=== PATIENT | female | born 1960 | race Caucasian/White ===

== ENCOUNTER → 2018-05-19 07:55 | Outpatient (CLI) | payer OTHER, SELFPAY ==
[2018-05-19 10:05] LABS: Free T4, Direct Thyroxine 1.42 ng/dL (0.78-2.19)
== END ==
PROVIDERS: Internal Medicine; Visit Provider Registered Nurse
DX: E03.9 Hypothyroidism, unspecified (principal)
CPT/HCPCS: 36415; 84439; 84443

== ENCOUNTER → 2018-09-28 11:42 | Outpatient (CLI) | payer OTHER, SELFPAY ==
[2018-09-28 12:34] LABS: Hematocrit 39.5 % (36-46); Hemoglobin 13.2 g/dL (12.0-16.0); Mean Corpuscular HGB Conc 33.4 % (30-36); Mean Corpuscular Hemoglobin 29.1 PG (26-34); Mean Corpuscular Volume 87.2 fL (80-100); Platelet Count 249 X10^3/uL (150-400); Red Blood Cell Count 4.52 X10^6/uL (4.0-5.2); Red Cell Distribution Width 12.9 % (11.6-14.8); White Blood Cell Count 5.8 X10^3/uL (4.5-11.0)
[2018-09-28 14:14] LABS: Vitamin D 25 Hydroxy (D3) 27.2 ng/mL (30.0-100.0)
[2018-09-28 16:26] LABS: Free T3, Triiodothyronine Free 3.27 pg/mL (2.77-5.27); Free T4, Direct Thyroxine 1.28 ng/dL (0.78-2.19)
[2018-09-28 16:39] LABS: Thyroid Stimulating Hormone 0.03 uIU/mL (0.47-4.68)
== END ==
PROVIDERS: Family Provider Family Medicine; PCP Student in an Organized Health Care Education/Training Program; Visit Provider Student in an Organized Health Care Education/Training Program
DX: E03.9 Hypothyroidism, unspecified (principal); E55.9 Vitamin D deficiency, unspecified
CPT/HCPCS: 36415; 82306; 84439; 84443; 84481; 85027

== ENCOUNTER → 2018-10-31 10:59 | Outpatient (CLI) | payer OTHER, SELFPAY ==
--- NOTE | 2018-10-31 11:01 | DI.US.S_ITS ---
PROCEDURE: US THYROID INDICATIONS: F/u previous thyroid nodules from September 2017 TECHNIQUE: Real-time scanning was performed of the thyroid gland, with image documentation. COMPARISON: [facility], [place], THYROID, 09/29/2017, 13:25. FINDINGS: Right: Thyroid lobe measures 4.5 x 1.6 x 1.4 cm, and is diffusely heterogeneous in echotexture. Left: Thyroid lobe measures 4.7 x 1.6 x 1.3 cm, and is diffusely heterogeneous in echotexture. Isthmus: 5.0 mm thick. Nodule number: 1 Location: Left inferior Size: Unchanged at 0.8 x 0.7 x 0.7 cm. Composition: Solid Echogenicity: Heterogeneous Shape: wider than tall. Margins: Lobulated Echogenic foci: None Total points: 4 ACR TI-RADS category: Moderately suspicious Nodule number: 2 Location: Left inferior Size: Unchanged at 0.8 x 0.7 x 0.8 cm. Composition: Solid Echogenicity: Hypoechoic Shape: wider than tall. Margins: Smooth Echogenic foci: None Total points: 4 ACR TI-RADS category: Moderately suspicious IMPRESSION: 1. Diffusely heterogeneous and multinodular thyroid redemonstrated. 2. Stable appearance of bilateral thyroid nodules. Recommend followup as below. ACR TI-RADS definitions and recommendations: TI-RADS 1 (benign): 0 points. FNA not needed. TI-RADS 2 (not suspicious): 2 points. FNA not needed. TI-RADS 3 (mildly suspicious): 3 points. * FNA if 2.5 cm or larger, follow up if 1.5 cm or larger (at 1, 3, and 5 years). TI-RADS 4 (moderately suspicious): 4-6 points. * FNA if 1.5 cm or larger, follow up if 1 cm or larger (at 1, 2, 3, and 5 years). TI-RADS 5 (highly suspicious): 7 points or more. * FNA if 1 cm or larger, follow up if 0.5 cm or larger (every year for 5 years). Dictated by: Tan SANDOVAL Interpreted: Alia Romano MD on 10/31/2018 at 12:50 Approved by: Alia Romano M.D. on 10/31/2018 at 15:15
== END ==
PROVIDERS: PCP Student in an Organized Health Care Education/Training Program; Visit Provider Student in an Organized Health Care Education/Training Program
DX: E03.9 Hypothyroidism, unspecified (principal); E04.2 Nontoxic multinodular goiter
CPT/HCPCS: 76536

== ENCOUNTER → 2019-03-01 12:12 | Outpatient (CLI) | payer OTHER, SELFPAY ==
--- NOTE | 2019-03-01 12:13 | DI.MG.S_ITS ---
BILATERAL DIGITAL SCREENING MAMMOGRAM 3D/2D WITH CAD: 03/01/2019 CLINICAL: Routine screening. Baseline exam. No prior exams were available for comparison. There are scattered fibroglandular elements in both breasts. Current study was also evaluated with a Computer Aided Detection (CAD) system. No significant masses, calcifications, or other findings are seen in either breast. IMPRESSION: NEGATIVE There is no mammographic evidence of malignancy. A 1 year screening mammogram is recommended. This exam was interpreted at Station ID: [id number]. NOTE: For mammograms, a report in lay terms will be sent to the patient. Approximately 15% of breast malignancies will not be visualized mammographically. In the management of a palpable breast mass, a negative mammogram must not discourage biopsy of a clinically suspicious lesion. Electronically Signed By: Salas mustafa/zachary:03/01/2019 12:48:47 letter sent: Normal Exam ACR BI-RADS Category 1: Negative [id number]
== END ==
PROVIDERS: PCP Student in an Organized Health Care Education/Training Program; Visit Provider Student in an Organized Health Care Education/Training Program
DX: Z12.31 Encounter for screening mammogram for malignant neoplasm of breast (principal)
CPT/HCPCS: 77063; 77067

== ENCOUNTER → 2019-04-02 13:58 | Outpatient (CLI) | payer OTHER, SELFPAY ==
[2019-04-04 16:55] LABS: Fecal Immunochemical Test NOT DETECTED (NOT DETECTED)
== END ==
PROVIDERS: PCP Student in an Organized Health Care Education/Training Program; Visit Provider Student in an Organized Health Care Education/Training Program
DX: Z12.11 Encounter for screening for malignant neoplasm of colon (principal)
CPT/HCPCS: 82274

== ENCOUNTER → 2019-09-17 14:26 | Outpatient (CLI) | payer OTHER, SELFPAY ==
[2019-09-17 15:53] LABS: Free T3, Triiodothyronine Free 2.38 pg/mL (2.77-5.27); Free T4, Direct Thyroxine 1.23 ng/dL (0.78-2.19)
[2019-09-17 16:06] LABS: Thyroid Stimulating Hormone 3.84 uIU/mL (0.47-4.68)
== END ==
PROVIDERS: PCP Student in an Organized Health Care Education/Training Program; Referring Provider Student in an Organized Health Care Education/Training Program; Visit Provider Student in an Organized Health Care Education/Training Program
DX: E03.9 Hypothyroidism, unspecified (principal)
CPT/HCPCS: 36415; 84439; 84443; 84481

== ENCOUNTER → 2020-11-18 12:08 | Outpatient (CLI) | payer OTHER, SELFPAY ==
--- NOTE | 2020-11-18 12:11 | DI.US.S_ITS ---
PROCEDURE: US THYROID INDICATIONS: 2yr routine f/u of bilateral thyroid nodules TECHNIQUE: Real-time scanning was performed of the thyroid gland, with image documentation. COMPARISON: [facility], [place], US THYROID, 10/31/2018, 11:35. FINDINGS: Right: Thyroid lobe measures 3.9 x 2.1 x 1.3 cm, and is diffusely heterogeneous in echotexture. Left: Thyroid lobe measures 3.4 x 1.4 x 1.2 cm, and is diffusely heterogeneous in echotexture. Isthmus: 3.0 mm thick. Nodule number: 1 Location: Left inferior Size: Essentially unchanged 1.0 cm Composition: Solid Echogenicity: Hypoechoic Shape: wider than tall. Margins: Smooth Echogenic foci: None Total points: 4 ACR TI-RADS category: Moderately suspicious IMPRESSION: Diffusely heterogeneous thyroid and no significant change in left thyroid nodule. Recommend continued followup ultrasound as detailed below. ACR TI-RADS definitions and recommendations: TI-RADS 1 (benign): 0 points. FNA not needed. TI-RADS 2 (not suspicious): 2 points. FNA not needed. TI-RADS 3 (mildly suspicious): 3 points. * FNA if 2.5 cm or larger, follow up if 1.5 cm or larger (at 1, 3, and 5 years). TI-RADS 4 (moderately suspicious): 4-6 points. * FNA if 1.5 cm or larger, follow up if 1 cm or larger (at 1, 2, 3, and 5 years). TI-RADS 5 (highly suspicious): 7 points or more. * FNA if 1 cm or larger, follow up if 0.5 cm or larger (every year for 5 years). Dictated by: Tan Tesfaye [facility] Interpreted: Harsh Hutchins MD on 11/18/2020 at 15:15 Transcribed by: PONCHO on 11/18/2020 at 15:16 Approved by: Harsh Hutchins M.D. on 11/18/2020 at 15:53
== END ==
PROVIDERS: PCP Student in an Organized Health Care Education/Training Program; Referring Provider Student in an Organized Health Care Education/Training Program; Visit Provider Student in an Organized Health Care Education/Training Program
DX: E04.1 Nontoxic single thyroid nodule (principal)
CPT/HCPCS: 76536

== ENCOUNTER → 2021-12-29 15:27 | Outpatient (CLI) | payer OTHER, SELFPAY ==
[2021-12-29 17:52] LABS: TSH w/ Reflex to FT4 < 0.02 uIU/mL (0.47-4.68)
[2021-12-29 18:24] LABS: Free T4, Direct Thyroxine 1.79 ng/dL (0.78-2.19)
== END ==
PROVIDERS: PCP Student in an Organized Health Care Education/Training Program; Referring Provider Student in an Organized Health Care Education/Training Program; Visit Provider Student in an Organized Health Care Education/Training Program
DX: E03.9 Hypothyroidism, unspecified (principal)
CPT/HCPCS: 36415; 84439; 84443

== ENCOUNTER → 2022-02-23 13:10 | Outpatient (CLI) | payer OTHER, SELFPAY ==
[2022-02-23 14:56] LABS: Free T4, Direct Thyroxine 1.75 ng/dL (0.78-2.19)
== END ==
PROVIDERS: PCP Student in an Organized Health Care Education/Training Program; Referring Provider Student in an Organized Health Care Education/Training Program; Visit Provider Student in an Organized Health Care Education/Training Program
DX: E03.9 Hypothyroidism, unspecified (principal)
CPT/HCPCS: 36415; 84439; 84443

== ENCOUNTER 2022-03-04 11:25 | Emergency (ER) | payer OTHER, SELFPAY ==
[2022-03-04] VITALS (18 sets, daily range): BP systolic 132–173; BP diastolic 63–83; PULSE 55–84; RESP 15–20; TEMP 36.2; O2SAT 94–99; BMI 28.8
--- NOTE | 2022-03-04 11:33 | DI.RAD.S_ITS ---
PROCEDURE: XR CHEST 1V INDICATIONS: chest pain TECHNIQUE: One view of the chest was acquired. COMPARISON: None. FINDINGS: Surgical changes and devices: None. Lungs and pleura: Lungs are clear. No pleural effusions or pneumothorax. Mediastinum: Mediastinal contours appear normal. Heart size is normal. Bones and chest wall: No suspicious bony lesions. Overlying soft tissues appear unremarkable. IMPRESSION: No acute cardiopulmonary findings Approved by: Rip Pérez M.D. on 03/04/2022 at 11:53
[2022-03-04 12:01] LABS: Add Manual Diff / Slide Review NO; Basophils Absolute Auto 0 /uL (0-100); Basophils Percent Auto 0.8 % (0-2); Eosinophils Absolute Auto 0 /uL (0-450); Eosinophils Percent Auto 0.7 % (2-4); Hematocrit 36.2 % (36-46); Hemoglobin 12.3 g/dL (12.0-16.0); Lymphocytes Absolute Auto 1000 /uL (1100-4500); Lymphocytes Percent Auto 19.7 % (25-40); Mean Corpuscular HGB Conc 33.9 % (30-36); Mean Corpuscular Hemoglobin 29.2 PG (26-34); Mean Corpuscular Volume 86.1 fL (80-100); Monocytes Absolute Auto 400 /uL (0-900); Monocytes Percent Auto 7.1 % (3-14); Neutrophils Absolute Auto 3600 /uL (1500-7000); Neutrophils Percent Auto 71.7 % (50-75); Platelet Count 294 X10^3/uL (150-400)
[2022-03-04 12:14] LABS: INR 1.1 (0.9-1.3); Prothrombin Time 12.8 SECONDS (10.1-12.7)
[2022-03-04 12:20] LABS: Alanine Aminotransferase 353 IU/L (<35); Albumin 4.3 g/dL (3.5-5.0); Albumin Globulin Ratio 1.3 (1.0-2.8); Alkaline Phosphatase 479 U/L (38-126); Aspartate Aminotransferase 117 IU/L (14-36); BUN Creatinine Ratio 12.5 (6-22); Bilirubin Total 1.2 mg/dL (0.2-1.3); Blood Urea Nitrogen 9 mg/dL (7-17); Calcium 9.3 mg/dL (8.4-10.2); Carbon Dioxide 23 mmol/L (22-32); Chloride 102 mmol/L (98-107); Creatine Kinase 21 U/L (30-135); Estimated Glomerular Filt Rate > 60 mL/min (>60); Globulin 3.4 g/dL (1.7-4.1); Glucose 113 mg/dL (80-110); HEMOLYSIS < 15 (0-50); Lipase 51 U/L (23-300); Magnesium 2.3 mg/dL (1.6-2.3); Potassium 3.7 mmol/L (3.4-5.1); Sodium 138 mmol/L (137-145); Total Protein 7.7 g/dL (6.3-8.2)
[2022-03-04 12:26] LABS: PTT Partial Thromboplastin Tim 35 SECONDS (26-36)
[2022-03-04 12:30] LABS: Troponin I < 0.012 ng/mL (0.01-0.034)
[2022-03-04 12:44] LABS: RBC Urine 1-5/HPF (0-5/HPF); Squamous Epithelial Cell Urine 1-5 /HPF (0-5/HPF); WBC Urine 0-1/HPF (0-5/HPF)
[2022-03-04 12:45] LABS: Bacteria Urine None Seen; Culture Indicated Urine Cult Not Indicated
[2022-03-04 13:09] LABS: Thyroid Stimulating Hormone 1.19 uIU/mL (0.47-4.68)
--- NOTE | 2022-03-04 15:12 | ED_ITS ---
HPI - Chest Pain <Linda Black DO - Last Filed: 03/10/22 07:01> General Chief Complaint: Chest Pain Stated Complaint: Vomiting, fever, chills Time Seen by Provider: 03/04/22 15:30 Source: patient Mode of arrival: Ambulatory Limitations: no limitations History of Present Illness HPI narrative: Is a 61-year-old female history of hypothyroidism presenting today with epigastric pain ongoing for last 5 weeks. She says every time she eats something 2 hours later she gets of the sweats and curls up in position. She denies any chest pain no right upper quadrant pain she does not have nausea or vomiting. She is quite concerned about her thyroid. Her TSH in December was < 0.02. On 137 mcg of levothyroxine. At that time dose was decreased to 125 mcg. It was rechecked last week in her TSH is 0.1. She is convinced that her thyroid med is the problem so she halved her levothyroxine last. She says that she has lost weight, she says she is no longer hungry. She denies any shortness of breath Related Data Previous Rx's Medication Instructions Recorded levothyroxine 125 mcg tablet 125 mcg PO DAILY #90 tabs 01/01/22 amoxicillin 875 mg-potassium 1 tab PO BID #20 tabs 03/06/22 clavulanate 125 mg tablet Allergies Allergy/AdvReac Type Severity Reaction Status Date / Time No Known Drug Allergies Allergy Verified 03/04/22 11:29 <Hilda Venegas DO - Last Filed: 03/05/22 06:43> History of Present Illness HPI narrative: Is a 61-year-old female history of hypothyroidism presenting today with epigastric pain ongoing for last 5 weeks. She says every time she eats something 2 hours later she gets of the sweats and curls up in position. She denies any chest pain no right upper quadrant pain she does not have nausea or vomiting. She is quite concerned about her thyroid. Her TSH in December was < 0.02. On 137 mcg of levothyroxine. At that time dose was decreased to 125 mcg. It was rechecked last week in her TSH is 0.1. She is convinced that her thyroid med is the problem so she halved her levothyroxine last. She says that she has lost weight, she says she is no longer hungry. She denies any shortness of breath. Review of Systems <Linda Black DO - Last Filed: 03/10/22 07:01> Review of Systems Narrative: GENERAL: Denies chills, fatigue, malaise, fever, sweats, travel HEENT: Denies sinus pain, ear pain, sore throat, difficulty swallowing, neck pain RESPIRATORY: Denies dyspnea, cough, wheezing, hemoptysis, sputum. CARDIOVASCULAR: Denies chest pain, palpitations, orthopnea, edema GASTROINTESTINAL: see HPI : Denies dysuria, frequency, incontinence, hematuria, urinary retention, flank pain. MUSCULOSKELETAL: Denies weakness, joint pain, or bony pain SKIN: No rash, no erythema, no pruritus NEUROLOGIC: Denies weakness, dizziness, headache, numbness, change in speech, confusion PSYCHIATRIC: No concerning psychosocial issues. 12 point review of systems is negative except for those stated above and HPI Patient History <DO Saige Cuadra Last Filed: 03/10/22 07:01> Medical History Anemia Chicken pox (~1965) Fibroids Heavy menstrual period History of urinary tract infection Hypothyroidism (~2015) Measles (~1967) MRSA (methicillin resistant Staphylococcus aureus) (~2004) Skin problem Surgical History Anesthesia Status post breast lumpectomy (~1989) Status post hysterectomy (~2006) Family History Mother Age: 82 Cancer Mental health problem Malignant melanoma, unspecified site Grandmother Diabetes mellitus Brother Mental health problem Social History Smoking Status: Never smoker alcohol intake: current substance use type: does not use Smoking Status: Never smoker alcohol intake frequency: holidays/special occasions only Substance Use Type: marijuana Exam <DO Saige Cuadra Last Filed: 03/10/22 07:01> Initial Vital Signs Initial Vital Signs: Vital Signs Temperature 97.1 F L 03/04/22 11:29 Pulse Rate 84 03/04/22 11:29 Respiratory Rate 15 03/04/22 11:29 Blood Pressure 162/83 H 03/04/22 11:29 Pulse Oximetry 98 03/04/22 11:29 Oxygen Delivery Method 03/04/22 11:29 GENERAL: Alert 61-year-old female and in no acute distress. HEENT: Head atraumatic,EOMI, pupils reactive, face symmetric, moist mucous membranes CARDIOVASCULAR: Regular rate and rhythm without murmurs, rubs or gallops. RESPIRATORY: Breath sounds equal bilaterally, no wheezes rales or rhonchi. ABDOMEN: Soft, minimal epigastric pain no guarding no rebound negative Willis sign EXTREMITIES: Normal range of motion, no clubbing or edema. Neurovascularly intact NEUROLOGICAL: Alert and oriented x4.Normal gait and speech. SKIN: Warm, dry, no laceration, no petechiae, no rashes or lesions. <Hilda Venegas, DO - Last Filed: 03/05/22 06:43> Initial Vital Signs Initial Vital Signs: Vital Signs Temperature 97.1 F L 03/04/22 11:29 Pulse Rate 84 03/04/22 11:29 Respiratory Rate 15 03/04/22 11:29 Blood Pressure 162/83 H 03/04/22 11:29 Pulse Oximetry 98 03/04/22 11:29 Oxygen Delivery Method 03/04/22 11:29 <Caesar Santiago, DO - Last Filed: 03/06/22 19:55> Initial Vital Signs Initial Vital Signs: Vital Signs Temperature 97.1 F L 03/04/22 11:29 Pulse Rate 84 03/04/22 11:29 Respiratory Rate 15 03/04/22 11:29 Blood Pressure 162/83 H 03/04/22 11:29 Pulse Oximetry 98 03/04/22 11:29 Oxygen Delivery Method 03/04/22 11:29 Course <Linda Black DO - Last Filed: 03/10/22 07:01> Orders Ordered: Discontinued Medications Amoxicillin/Clavulanate Potassium (Amoxicillin/Clav 875/125 Mg) 1 tab PO NOW ONE Stop: 03/06/22 17:34 Last Admin: 03/06/22 17:40 Dose: 1 tab Documented By: SHIKHA Enoxaparin Sodium (Enoxaparin 40 Mg/0.4 Ml Syringe) 40 mg SUBCUT DAILY [facility] Last Admin: 03/06/22 09:42 Dose: 40 mg Documented By: Admin: 03/05/22 11:14 Dose: 40 mg Documented By: TOMA Sodium Chloride (Normal Saline 0.9%) 1,000 mls @ 1,000 mls/hr IV BOLUS ONE Stop: 03/04/22 17:32 Last Infusion: 03/04/22 19:13 Dose: 0 mls/hr Documented By: Admin: 03/04/22 16:41 Dose: 1,000 mls/hr Documented By: TIA Piperacillin Sod/Tazobactam (Sod 4.5 gm/ Sodium Chloride) 100 mls @ 200 mls/hr IV NOW ONE Stop: 03/04/22 18:45 Last Infusion: 03/04/22 20:00 Dose: 0 mls/hr Documented By: Admin: 03/04/22 19:12 Dose: 200 mls/hr Documented By: MATY Piperacillin Sod/Tazobactam (Sod 4.5 gm/ Sodium Chloride) 100 mls @ 25 mls/hr IV Q8H [facility] Last Infusion: 03/06/22 15:41 Dose: 0 mls/hr Documented By: Admin: 03/06/22 11:42 Dose: 25 mls/hr Documented By: Infusion: 03/06/22 08:50 Dose: 0 mls/hr Documented By: Admin: 03/06/22 04:29 Dose: 25 mls/hr Documented By: Infusion: 03/06/22 00:50 Dose: 0 mls/hr Documented By: Admin: 03/05/22 20:21 Dose: 25 mls/hr Documented By: Infusion: 03/05/22 15:12 Dose: 0 mls/hr Documented By: Admin: 03/05/22 11:14 Dose: 25 mls/hr Documented By: Infusion: 03/05/22 07:00 Dose: 0 mls/hr Documented By: ADIEL(2) Admin: 03/05/22 02:34 Dose: 25 mls/hr Documented By: ANASTASIA Ketorolac Tromethamine (Ketorolac 30 Mg/Ml Vial) 15 mg IV NOW ONE Stop: 03/04/22 19:14 Last Admin: 03/04/22 19:24 Dose: 15 mg Documented By: ANASTASIA Levothyroxine Sodium (Levothyroxine 125 Mcg Tablet) 125 mcg PO DAILY@0600 [facility] Ondansetron HCl (Ondansetron 4 Mg Odt Prepack) 1 bottle MISC SEEINSTR ONE Stop: 03/06/22 18:20 Zolpidem Tartrate (Zolpidem 5 Mg Tablet) 5 mg PO BEDTIME PRN PRN Reason: Sleep Last Admin: 03/05/22 21:50 Dose: 5 mg Documented By: Admin: 03/05/22 01:43 Dose: 5 mg Documented By: ANASTASIA Vital Signs Vital signs: Vital Signs - 8 hr 03/06/22 16:23 03/06/22 16:19 03/06/22 16:20 Temperature 97.9 F Pulse Rate 59 L 61 Respiratory Rate 18 Blood Pressure 154/67 H 154/67 H Pulse Oximetry 96 97 Oxygen Delivery Method Room Air 03/06/22 16:20 03/06/22 18:24 Temperature Pulse Rate 59 L 62 Respiratory Rate 18 Blood Pressure 151/63 H Pulse Oximetry 95 96 Oxygen Delivery Method Room Air <Hilda Venegas DO - Last Filed: 03/05/22 06:43> Orders Ordered: Discontinued Medications Amoxicillin/Clavulanate Potassium (Amoxicillin/Clav 875/125 Mg) 1 tab PO NOW ONE Stop: 03/06/22 17:34 Last Admin: 03/06/22 17:40 Dose: 1 tab Documented By: SHIKHA Enoxaparin Sodium (Enoxaparin 40 Mg/0.4 Ml Syringe) 40 mg SUBCUT DAILY [facility] Last Admin: 03/06/22 09:42 Dose: 40 mg Documented By: Admin: 03/05/22 11:14 Dose: 40 mg Documented By: TOMA Sodium Chloride (Normal Saline 0.9%) 1,000 mls @ 1,000 mls/hr IV BOLUS ONE Stop: 03/04/22 17:32 Last Infusion: 03/04/22 19:13 Dose: 0 mls/hr Documented By: Admin: 03/04/22 16:41 Dose: 1,000 mls/hr Documented By: TIA Piperacillin Sod/Tazobactam (Sod 4.5 gm/ Sodium Chloride) 100 mls @ 200 mls/hr IV NOW ONE Stop: 03/04/22 18:45 Last Infusion: 03/04/22 20:00 Dose: 0 mls/hr Documented By: Admin: 03/04/22 19:12 Dose: 200 mls/hr Documented By: MATY Piperacillin Sod/Tazobactam (Sod 4.5 gm/ Sodium Chloride) 100 mls @ 25 mls/hr IV Q8H [facility] Last Infusion: 03/06/22 15:41 Dose: 0 mls/hr Documented By: Admin: 03/06/22 11:42 Dose: 25 mls/hr Documented By: Infusion: 03/06/22 08:50 Dose: 0 mls/hr Documented By: Admin: 03/06/22 04:29 Dose: 25 mls/hr Documented By: Infusion: 03/06/22 00:50 Dose: 0 mls/hr Documented By: Admin: 03/05/22 20:21 Dose: 25 mls/hr Documented By: Infusion: 03/05/22 15:12 Dose: 0 mls/hr Documented By: Admin: 03/05/22 11:14 Dose: 25 mls/hr Documented By: Infusion: 03/05/22 07:00 Dose: 0 mls/hr Documented By: ADIEL(2) Admin: 03/05/22 02:34 Dose: 25 mls/hr Documented By: ANASTASIA Ketorolac Tromethamine (Ketorolac 30 Mg/Ml Vial) 15 mg IV NOW ONE Stop: 03/04/22 19:14 Last Admin: 03/04/22 19:24 Dose: 15 mg Documented By: ANASTASIA Levothyroxine Sodium (Levothyroxine 125 Mcg Tablet) 125 mcg PO DAILY@0600 [facility] Ondansetron HCl (Ondansetron 4 Mg Odt Prepack) 1 bottle MISC SEEINSTR ONE Stop: 03/06/22 18:20 Zolpidem Tartrate (Zolpidem 5 Mg Tablet) 5 mg PO BEDTIME PRN PRN Reason: Sleep Last Admin: 03/05/22 21:50 Dose: 5 mg Documented By: Admin: 03/05/22 01:43 Dose: 5 mg Documented By: ANASTASIA Vital Signs Vital signs: Vital Signs - 8 hr 03/06/22 16:23 03/06/22 16:19 03/06/22 16:20 Temperature 97.9 F Pulse Rate 59 L 61 Respiratory Rate 18 Blood Pressure 154/67 H 154/67 H Pulse Oximetry 96 97 Oxygen Delivery Method Room Air 03/06/22 16:20 03/06/22 18:24 Temperature Pulse Rate 59 L 62 Respiratory Rate 18 Blood Pressure 151/63 H Pulse Oximetry 95 96 Oxygen Delivery Method Room Air <Caesar Santiago DO - Last Filed: 03/06/22 19:55> Orders Ordered: Discontinued Medications Amoxicillin/Clavulanate Potassium (Amoxicillin/Clav 875/125 Mg) 1 tab PO NOW ONE Stop: 03/06/22 17:34 Last Admin: 03/06/22 17:40 Dose: 1 tab Documented By: SHIKHA Enoxaparin Sodium (Enoxaparin 40 Mg/0.4 Ml Syringe) 40 mg SUBCUT DAILY [facility] Last Admin: 03/06/22 09:42 Dose: 40 mg Documented By: Admin: 03/05/22 11:14 Dose: 40 mg Documented By: TOMA Sodium Chloride (Normal Saline 0.9%) 1,000 mls @ 1,000 mls/hr IV BOLUS ONE Stop: 03/04/22 17:32 Last Infusion: 03/04/22 19:13 Dose: 0 mls/hr Documented By: Admin: 03/04/22 16:41 Dose: 1,000 mls/hr Documented By: TIA Piperacillin Sod/Tazobactam (Sod 4.5 gm/ Sodium Chloride) 100 mls @ 200 mls/hr IV NOW ONE Stop: 03/04/22 18:45 Last Infusion: 03/04/22 20:00 Dose: 0 mls/hr Documented By: Admin: 03/04/22 19:12 Dose: 200 mls/hr Documented By: MATY Piperacillin Sod/Tazobactam (Sod 4.5 gm/ Sodium Chloride) 100 mls @ 25 mls/hr IV Q8H [facility] Last Infusion: 03/06/22 15:41 Dose: 0 mls/hr Documented By: Admin: 03/06/22 11:42 Dose: 25 mls/hr Documented By: Infusion: 03/06/22 08:50 Dose: 0 mls/hr Documented By: Admin: 03/06/22 04:29 Dose: 25 mls/hr Documented By: Infusion: 03/06/22 00:50 Dose: 0 mls/hr Documented By: Admin: 03/05/22 20:21 Dose: 25 mls/hr Documented By: Infusion: 03/05/22 15:12 Dose: 0 mls/hr Documented By: Admin: 03/05/22 11:14 Dose: 25 mls/hr Documented By: Infusion: 03/05/22 07:00 Dose: 0 mls/hr Documented By: ADIEL(2) Admin: 03/05/22 02:34 Dose: 25 mls/hr Documented By: ANASTASIA Ketorolac Tromethamine (Ketorolac 30 Mg/Ml Vial) 15 mg IV NOW ONE Stop: 03/04/22 19:14 Last Admin: 03/04/22 19:24 Dose: 15 mg Documented By: ANASTASIA Levothyroxine Sodium (Levothyroxine 125 Mcg Tablet) 125 mcg PO DAILY@0600 [facility] Ondansetron HCl (Ondansetron 4 Mg Odt Prepack) 1 bottle MISC SEEINSTR ONE Stop: 03/06/22 18:20 Zolpidem Tartrate (Zolpidem 5 Mg Tablet) 5 mg PO BEDTIME PRN PRN Reason: Sleep Last Admin: 03/05/22 21:50 Dose: 5 mg Documented By: Admin: 03/05/22 01:43 Dose: 5 mg Documented By: ANASTASIA Vital Signs Vital signs: Vital Signs - 8 hr 03/06/22 16:23 03/06/22 16:19 03/06/22 16:20 Temperature 97.9 F Pulse Rate 59 L 61 Respiratory Rate 18 Blood Pressure 154/67 H 154/67 H Pulse Oximetry 96 97 Oxygen Delivery Method Room Air 03/06/22 16:20 03/06/22 18:24 Temperature Pulse Rate 59 L 62 Respiratory Rate 18 Blood Pressure 151/63 H Pulse Oximetry 95 96 Oxygen Delivery Method Room Air MDM - Chest Pain <Linda Black, - Last Filed: 03/10/22 07:01> Lab Data Result diagrams: 03/06/22 05:45 03/06/22 05:45 Labs: Lab Results 03/04/22 03/04/22 03/04/22 Range/Units 11:41 11:41 11:41 WBC 5.0 (4.5-11.0) X10^3/uL RBC 4.20 (4.0-5.2) X10^6/uL Hgb 12.3 (12.0-16.0) g/dL Hct 36.2 (36-46) % MCV 86.1 (80-100) fL MCH 29.2 (26-34) PG MCHC 33.9 (30-36) % RDW 14.0 (11.6-14.8) % Plt Count 294 (150-400) X10^3/uL Neut % (Auto) 71.7 (50-75) % Lymph % (Auto) 19.7 L (25-40) % [place] % (Auto) 7.1 (3-14) % Eos % (Auto) 0.7 L (2-4) % Baso % (Auto) 0.8 (0-2) % Neut # (Auto) 3600 (9155-9522) /uL Lymph # (Auto) 1000 L (5171-2250) /uL [place] # (Auto) 400 (0-900) /uL Eos # (Auto) 0 (0-450) /uL Baso # (Auto) 0 (0-100) /uL PT 12.8 H (10.1-12.7) SECONDS INR 1.1 (0.9-1.3) APTT 35 (26-36) SECONDS Sodium 138 (137-145) mmol/L Potassium 3.7 (3.4-5.1) mmol/L Chloride 102 (98-107) mmol/L Carbon Dioxide 23 (22-32) mmol/L BUN 9 (7-17) mg/dL Creatinine 0.72 (0.52-1.04) mg/dL Estimated GFR > 60 (>60) mL/min BUN/Creatinine Ratio 12.5 (6-22) Glucose 113 H (80-110) mg/dL Calcium 9.3 (8.4-10.2) mg/dL Magnesium 2.3 (1.6-2.3) mg/dL Total Bilirubin 1.2 (0.2-1.3) mg/dL AST 117 H (14-36) IU/L ALT 353 H (<35) IU/L Alkaline Phosphatase 479 H (38-126) U/L Total Creatine Kinase 21 L (30-135) U/L CK-MB (CK-2) TNP CK-MB (CK-2) Rel Index TNP Troponin I < 0.012 (0.01-0.034) ng/mL Total Protein 7.7 (6.3-8.2) g/dL Albumin 4.3 (3.5-5.0) g/dL Globulin 3.4 (1.7-4.1) g/dL Albumin/Globulin Ratio 1.3 (1.0-2.8) Lipase 51 (23-300) U/L TSH (0.47-4.68) uIU/mL Urine RBC (0-5/HPF) Urine WBC (0-5/HPF) Ur Squamous Epith Cells (0-5/HPF) Urine Bacteria (None) Ur Culture Indicated? SARS-CoV-2 (PCR) (Negative) 03/04/22 03/04/22 03/04/22 Range/Units 11:41 11:49 19:27 WBC (4.5-11.0) X10^3/uL RBC (4.0-5.2) X10^6/uL Hgb (12.0-16.0) g/dL Hct (36-46) % MCV (80-100) fL MCH (26-34) PG MCHC (30-36) % RDW (11.6-14.8) % Plt Count (150-400) X10^3/uL Neut % (Auto) (50-75) % Lymph % (Auto) (25-40) % [place] % (Auto) (3-14) % Eos % (Auto) (2-4) % Baso % (Auto) (0-2) % Neut # (Auto) (2052-2984) /uL Lymph # (Auto) (9795-7766) /uL [place] # (Auto) (0-900) /uL Eos # (Auto) (0-450) /uL Baso # (Auto) (0-100) /uL PT (10.1-12.7) SECONDS INR (0.9-1.3) APTT (26-36) SECONDS Sodium (137-145) mmol/L Potassium (3.4-5.1) mmol/L Chloride (98-107) mmol/L Carbon Dioxide (22-32) mmol/L BUN (7-17) mg/dL Creatinine (0.52-1.04) mg/dL Estimated GFR (>60) mL/min BUN/Creatinine Ratio (6-22) Glucose (80-110) mg/dL Calcium (8.4-10.2) mg/dL Magnesium (1.6-2.3) mg/dL Total Bilirubin (0.2-1.3) mg/dL AST (14-36) IU/L ALT (<35) IU/L Alkaline Phosphatase (38-126) U/L Total Creatine Kinase (30-135) U/L CK-MB (CK-2) CK-MB (CK-2) Rel Index Troponin I (0.01-0.034) ng/mL Total Protein (6.3-8.2) g/dL Albumin (3.5-5.0) g/dL Globulin (1.7-4.1) g/dL Albumin/Globulin Ratio (1.0-2.8) Lipase (23-300) U/L TSH 1.19 (0.47-4.68) uIU/mL Urine RBC 1-5/hpf (0-5/HPF) Urine WBC 0-1/hpf (0-5/HPF) Ur Squamous Epith Cells 1-5 /hpf (0-5/HPF) Urine Bacteria None seen (None) Ur Culture Indicated? Cult not indicated SARS-CoV-2 (PCR) Negative (Negative) 03/05/22 03/05/22 03/06/22 Range/Units 06:12 06:12 05:45 WBC 4.2 L 5.1 (4.5-11.0) X10^3/uL RBC 3.70 L 3.76 L (4.0-5.2) X10^6/uL Hgb 10.7 L 11.0 L (12.0-16.0) g/dL Hct 31.7 L 32.1 L (36-46) % MCV 85.8 85.3 (80-100) fL MCH 28.9 29.2 (26-34) PG MCHC 33.7 34.2 (30-36) % RDW 13.8 13.8 (11.6-14.8) % Plt Count 255 265 (150-400) X10^3/uL Neut % (Auto) 60.1 68.5 (50-75) % Lymph % (Auto) 27.9 19.4 L (25-40) % [place] % (Auto) 8.9 8.7 (3-14) % Eos % (Auto) 2.3 2.4 (2-4) % Baso % (Auto) 0.8 1.0 (0-2) % Neut # (Auto) 2500 3500 (1500-6518) /uL Lymph # (Auto) 1200 1000 L (7734-5714) /uL [place] # (Auto) 400 400 (0-900) /uL Eos # (Auto) 100 100 (0-450) /uL Baso # (Auto) 0 100 (0-100) /uL PT (10.1-12.7) SECONDS INR (0.9-1.3) APTT (26-36) SECONDS Sodium 137 (137-145) mmol/L Potassium 3.9 (3.4-5.1) mmol/L Chloride 107 (98-107) mmol/L Carbon Dioxide 24 (22-32) mmol/L BUN 6 L (7-17) mg/dL Creatinine 0.82 (0.52-1.04) mg/dL Estimated GFR > 60 (>60) mL/min BUN/Creatinine Ratio 7.3 (6-22) Glucose 86 (80-110) mg/dL Calcium 8.6 (8.4-10.2) mg/dL Magnesium (1.6-2.3) mg/dL Total Bilirubin 1.2 (0.2-1.3) mg/dL AST 67 H (14-36) IU/L ALT 205 H (<35) IU/L Alkaline Phosphatase 382 H (38-126) U/L Total Creatine Kinase (30-135) U/L CK-MB (CK-2) CK-MB (CK-2) Rel Index Troponin I (0.01-0.034) ng/mL Total Protein 6.3 (6.3-8.2) g/dL Albumin 3.4 L (3.5-5.0) g/dL Globulin 2.9 (1.7-4.1) g/dL Albumin/Globulin Ratio 1.2 (1.0-2.8) Lipase 54 (23-300) U/L TSH (0.47-4.68) uIU/mL Urine RBC (0-5/HPF) Urine WBC (0-5/HPF) Ur Squamous Epith Cells (0-5/HPF) Urine Bacteria (None) Ur Culture Indicated? SARS-CoV-2 (PCR) (Negative) 03/06/22 03/06/22 Range/Units 05:45 17:35 WBC (4.5-11.0) X10^3/uL RBC (4.0-5.2) X10^6/uL Hgb (12.0-16.0) g/dL Hct (36-46) % MCV (80-100) fL MCH (26-34) PG MCHC (30-36) % RDW (11.6-14.8) % Plt Count (150-400) X10^3/uL Neut % (Auto) (50-75) % Lymph % (Auto) (25-40) % [place] % (Auto) (3-14) % Eos % (Auto) (2-4) % Baso % (Auto) (0-2) % Neut # (Auto) (8841-8823) /uL Lymph # (Auto) (8633-4729) /uL [place] # (Auto) (0-900) /uL Eos # (Auto) (0-450) /uL Baso # (Auto) (0-100) /uL PT (10.1-12.7) SECONDS INR (0.9-1.3) APTT (26-36) SECONDS Sodium 139 (137-145) mmol/L Potassium 3.9 (3.4-5.1) mmol/L Chloride 108 H (98-107) mmol/L Carbon Dioxide 22 (22-32) mmol/L BUN 4 L (7-17) mg/dL Creatinine 0.79 (0.52-1.04) mg/dL Estimated GFR > 60 (>60) mL/min BUN/Creatinine Ratio 5.1 L (6-22) Glucose 89 (80-110) mg/dL Calcium 8.7 (8.4-10.2) mg/dL Magnesium (1.6-2.3) mg/dL Total Bilirubin 1.9 H (0.2-1.3) mg/dL AST 133 H (14-36) IU/L ALT 228 H (<35) IU/L Alkaline Phosphatase 417 H (38-126) U/L Total Creatine Kinase (30-135) U/L CK-MB (CK-2) CK-MB (CK-2) Rel Index Troponin I (0.01-0.034) ng/mL Total Protein 6.4 (6.3-8.2) g/dL Albumin 3.5 (3.5-5.0) g/dL Globulin 2.9 (1.7-4.1) g/dL Albumin/Globulin Ratio 1.2 (1.0-2.8) Lipase (23-300) U/L TSH (0.47-4.68) uIU/mL Urine RBC (0-5/HPF) Urine WBC (0-5/HPF) Ur Squamous Epith Cells (0-5/HPF) Urine Bacteria (None) Ur Culture Indicated? SARS-CoV-2 (PCR) Negative (Negative) Urine Dip Bedside Urine Glucose Negative Bedside Urine Bilirubin - Negative Bedside Urine Ketone - Negative Urine Specific [place] 1.015 Bedside Urine Occult Blood + Bedside Urine pH 6.0 Bedside Urine Protein - Negative Bedside Urine Urobilinogen - Negative Bedside Urine Nitrite - Negative Bedside Urine Leukocytes - Negative Esterase Imaging Data Chest x-ray: Radiologist's Impression: XRay Report Signed Patient: Eneida Faye MR#: [id number] : 1960 Acct:[id number] Age/Sex: 61 / F Date of Service: 03/04/22 Loc: ED Accession Number: [id number] ?? Procedure: XR chest 1V Ordering Provider: Linda Black D.O. PROCEDURE:? XR CHEST 1V ? INDICATIONS:? chest pain ? TECHNIQUE:? One view of the chest was acquired.? ? COMPARISON:? None. ? FINDINGS:? ? Surgical changes and devices:? None.? ? Lungs and pleura:? Lungs are clear.? No pleural effusions or pneumothorax.? ? Mediastinum:? Mediastinal contours appear normal.? Heart size is normal.? ? Bones and chest wall:? No suspicious bony lesions.? Overlying soft tissues appear unremarkable.? ? IMPRESSION:? No acute cardiopulmonary findings ? ? ? Approved by: Rip Pérez M.D. on 03/04/2022 at 11:53? MRCP: Radiologist's Impression: Magnetic Resonance Report Signed Patient: Eneida Faye MR#: [id number] : 1960 Acct:[id number] Age/Sex: 61 / F Date of Service: 03/05/22 Loc: ED Accession Number: [id number] ?? Procedure: MR abdomen wo con Ordering Provider: Linda Black D.O. PROCEDURE:? MR ABDOMEN WO CON ? INDICATIONS:? dilated cbd ? TECHNIQUE:? Coronal HASTE through the abdomen, axial 2-D FLASH in- and [id number], and breath-hold T2 FSE with fat saturation through the biliary system and pancreas.? Oblique coronal and axial thin-slice HASTE, radial thick-slab HASTE centered on the extrahepatic bile ducts.? ? ? Intravenous secretin:? Not requested.? ? COMPARISON:? [facility], CT, CT ABDOMEN PELVIS W CON, 03/04/2022, 17:32. ? FINDINGS:? Image quality:? Excellent.? ? Pancreas and biliary system:? There is [id number] intrahepatic biliary ductal dilatation more prominent involving left hepatic lobe and measures up to 9 millimeter in diameter.? significant dilatation of common hepatic duct and common bile duct measures up to 2 cm in diameter proximally and 1.3 cm in diameter distally which was also seen on previous CT and ultrasound studies.? 2 filling defects are noted in distal co mmon bile duct measures 1 and 0.4 cm in size with abrupt narrowing at most distal common bile duct. ?Pancreas is normal in morphology, without adjacent soft tissue edema.? Pancreatic duct is normal in caliber, without developmental anomalies.? Gallbladder is distended without gallbladder wall thickening or pericholecystic fluid.? Small filling defect in dependent portion of gallbladder lumen near fundus is seen suggestive of gallstone. ? Other solid organs:? Liver is normal in size.? Spleen is normal in size.? No adrenal nodules.? Both kidneys are normal in size, without hydronephrosis.? ? Nodes and vessels:? No retroperitoneal or mesenteric adenopathy by size criteria.? Aorta and inferior vena cava are normal in size.? ? Bowel and peritoneum:? Unenhanced bowel loops are normal in caliber.? No free fluid.? ? Lung bases:? No basal pleural effusions.? Heart size is normal.? ? Bones and soft tissues:? No ventral hernias.? Bone marrow is of normal overall signal.? ? IMPRESSION:? 1. [id number] dilatation of intrahepatic biliary ducts and marked dilatation of common bile duct with at least 2 stones seen within distal common bile duct suggestive of distal common bile duct obstruction. 2. Cholelithiasis without gallbladder wall thickening or pericholecystic fluid to suggest acute cholecystitis. 3. Normal appearing pancreas and pancreatic duct.? No discrete hepatic lesion is seen.? Spleen is within normal limits. 4. No peritoneal free fluid.? ? Dictated by: Ollie Calderon M.D. on 03/05/2022 at 9:21 ? ? ECG Data Interpretation: Normal sinus rhythm rate 73 SD interval 128 QRS [address] depression in lead 2 no elevation no priors to come MDM Narrative Medical decision making narrative: 03/04/22 M[place]: Patient seen and evaluated independently by myself. Patient states she is been having symptoms since mid December with pain after she eats she will have several hours of abdominal pain, fever and chills and has had 102 F in the last week with nausea and sometimes vomiting. Patient states bananas and sometimes small amount of yogurt seem to be tolerated. She states that her only medication is levothyroxine. Patient states she is had a hysterectomy but no other surgeries. Patient states she is otherwise healthy. They have been adjusting her levothyroxine and she is somewhat convinced that this may be the cause of her choledocholithiasis today although we discussed these are likely separate issues. Patient does not appear to be septic but was covered with a dose of Zosyn she has reported fever in the last week. Not in here. Patient needs ERCP we do not have this available, contacting outside facilities to see about availability and transfer. Patient is aware of the critical bed shortage in the region and then this could potentially take several days. Patient currently waitlisted at [facility] [facility], other facilities do not have any beds. [facility] regional hotline contacted earlier in the evening and recont acted this morning. Currently no bed availability. Patient did request something for sleep. Patient given one dose of ambien overnight for sleep which she tolerated well. Patient signed out to Dr. Black while awaiting potential placement. 03/04/22 Wayne Patient seen evaluated by myself. She appears well. MRCP this morning confirms at least to common bile duct stones. Liver enzymes is are decreasing she continues to have a negative bilirubin no fever minimal pain. I discussed case with Dr. BRICENO, [facility]. At this time he recommends pursuing transfer for ERCP. He has complications risk is too high even though this has been going on for number of weeks. Has she is currently a high priority for [place]. She remains on list at [facility], [facility], [facility] and . 12:22 Dr. Mahmood, GI at [facility] updated patient's symptoms test results at this time agrees it is best if patient is inpatient for an ERCP. Patient is placed at the high list Signed out to Dr. Almanzar, <Hilda Elinor Venegas, DO - Last Filed: 03/05/22 06:43> Lab Data Labs: Lab Results 03/04/22 03/04/22 03/04/22 Range/Units 11:41 11:41 11:41 WBC 5.0 (4.5-11.0) X10^3/uL RBC 4.20 (4.0-5.2) X10^6/uL Hgb 12.3 (12.0-16.0) g/dL Hct 36.2 (36-46) % MCV 86.1 (80-100) fL MCH 29.2 (26-34) PG MCHC 33.9 (30-36) % RDW 14.0 (11.6-14.8) % Plt Count 294 (150-400) X10^3/uL Neut % (Auto) 71.7 (50-75) % Lymph % (Auto) 19.7 L (25-40) % [place] % (Auto) 7.1 (3-14) % Eos % (Auto) 0.7 L (2-4) % Baso % (Auto) 0.8 (0-2) % Neut # (Auto) 3600 (7993-6690) /uL Lymph # (Auto) 1000 L (4056-4959) /uL [place] # (Auto) 400 (0-900) /uL Eos # (Auto) 0 (0-450) /uL Baso # (Auto) 0 (0-100) /uL PT 12.8 H (10.1-12.7) SECONDS INR 1.1 (0.9-1.3) APTT 35 (26-36) SECONDS Sodium 138 (137-145) mmol/L Potassium 3.7 (3.4-5.1) mmol/L Chloride 102 (98-107) mmol/L Carbon Dioxide 23 (22-32) mmol/L BUN 9 (7-17) mg/dL Creatinine 0.72 (0.52-1.04) mg/dL Estimated GFR > 60 (>60) mL/min BUN/Creatinine Ratio 12.5 (6-22) Glucose 113 H (80-110) mg/dL Calcium 9.3 (8.4-10.2) mg/dL Magnesium 2.3 (1.6-2.3) mg/dL Total Bilirubin 1.2 (0.2-1.3) mg/dL AST 117 H (14-36) IU/L ALT 353 H (<35) IU/L Alkaline Phosphatase 479 H (38-126) U/L Total Creatine Kinase 21 L (30-135) U/L CK-MB (CK-2) TNP CK-MB (CK-2) Rel Index TNP Troponin I < 0.012 (0.01-0.034) ng/mL Total Protein 7.7 (6.3-8.2) g/dL Albumin 4.3 (3.5-5.0) g/dL Globulin 3.4 (1.7-4.1) g/dL Albumin/Globulin Ratio 1.3 (1.0-2.8) Lipase 51 (23-300) U/L TSH (0.47-4.68) uIU/mL Urine RBC (0-5/HPF) Urine WBC (0-5/HPF) Ur Squamous Epith Cells (0-5/HPF) Urine Bacteria (None) Ur Culture Indicated? SARS-CoV-2 (PCR) (Negative) 03/04/22 03/04/22 03/04/22 Range/Units 11:41 11:49 19:27 WBC (4.5-11.0) X10^3/uL RBC (4.0-5.2) X10^6/uL Hgb (12.0-16.0) g/dL Hct (36-46) % MCV (80-100) fL MCH (26-34) PG MCHC (30-36) % RDW (11.6-14.8) % Plt Count (150-400) X10^3/uL Neut % (Auto) (50-75) % Lymph % (Auto) (25-40) % [place] % (Auto) (3-14) % Eos % (Auto) (2-4) % Baso % (Auto) (0-2) % Neut # (Auto) (8559-1237) /uL Lymph # (Auto) (5261-4844) /uL [place] # (Auto) (0-900) /uL Eos # (Auto) (0-450) /uL Baso # (Auto) (0-100) /uL PT (10.1-12.7) SECONDS INR (0.9-1.3) APTT (26-36) SECONDS Sodium (137-145) mmol/L Potassium (3.4-5.1) mmol/L Chloride (98-107) mmol/L Carbon Dioxide (22-32) mmol/L BUN (7-17) mg/dL Creatinine (0.52-1.04) mg/dL Estimated GFR (>60) mL/min BUN/Creatinine Ratio (6-22) Glucose (80-110) mg/dL Calcium (8.4-10.2) mg/dL Magnesium (1.6-2.3) mg/dL Total Bilirubin (0.2-1.3) mg/dL AST (14-36) IU/L ALT (<35) IU/L Alkaline Phosphatase (38-126) U/L Total Creatine Kinase (30-135) U/L CK-MB (CK-2) CK-MB (CK-2) Rel Index Troponin I (0.01-0.034) ng/mL Total Protein (6.3-8.2) g/dL Albumin (3.5-5.0) g/dL Globulin (1.7-4.1) g/dL Albumin/Globulin Ratio (1.0-2.8) Lipase (23-300) U/L TSH 1.19 (0.47-4.68) uIU/mL Urine RBC 1-5/hpf (0-5/HPF) Urine WBC 0-1/hpf (0-5/HPF) Ur Squamous Epith Cells 1-5 /hpf (0-5/HPF) Urine Bacteria None seen (None) Ur Culture Indicated? Cult not indicated SARS-CoV-2 (PCR) Negative (Negative) 03/05/22 03/05/22 03/06/22 Range/Units 06:12 06:12 05:45 WBC 4.2 L 5.1 (4.5-11.0) X10^3/uL RBC 3.70 L 3.76 L (4.0-5.2) X10^6/uL Hgb 10.7 L 11.0 L (12.0-16.0) g/dL Hct 31.7 L 32.1 L (36-46) % MCV 85.8 85.3 (80-100) fL MCH 28.9 29.2 (26-34) PG MCHC 33.7 34.2 (30-36) % RDW 13.8 13.8 (11.6-14.8) % Plt Count 255 265 (150-400) X10^3/uL Neut % (Auto) 60.1 68.5 (50-75) % Lymph % (Auto) 27.9 19.4 L (25-40) % [place] % (Auto) 8.9 8.7 (3-14) % Eos % (Auto) 2.3 2.4 (2-4) % Baso % (Auto) 0.8 1.0 (0-2) % Neut # (Auto) 2500 3500 (8765-5606) /uL Lymph # (Auto) 1200 1000 L (8733-6932) /uL [place] # (Auto) 400 400 (0-900) /uL Eos # (Auto) 100 100 (0-450) /uL Baso # (Auto) 0 100 (0-100) /uL PT (10.1-12.7) SECONDS INR (0.9-1.3) APTT (26-36) SECONDS Sodium 137 (137-145) mmol/L Potassium 3.9 (3.4-5.1) mmol/L Chloride 107 (98-107) mmol/L Carbon Dioxide 24 (22-32) mmol/L BUN 6 L (7-17) mg/dL Creatinine 0.82 (0.52-1.04) mg/dL Estimated GFR > 60 (>60) mL/min BUN/Creatinine Ratio 7.3 (6-22) Glucose 86 (80-110) mg/dL Calcium 8.6 (8.4-10.2) mg/dL Magnesium (1.6-2.3) mg/dL Total Bilirubin 1.2 (0.2-1.3) mg/dL AST 67 H (14-36) IU/L ALT 205 H (<35) IU/L Alkaline Phosphatase 382 H (38-126) U/L Total Creatine Kinase (30-135) U/L CK-MB (CK-2) CK-MB (CK-2) Rel Index Troponin I (0.01-0.034) ng/mL Total Protein 6.3 (6.3-8.2) g/dL Albumin 3.4 L (3.5-5.0) g/dL Globulin 2.9 (1.7-4.1) g/dL Albumin/Globulin Ratio 1.2 (1.0-2.8) Lipase 54 (23-300) U/L TSH (0.47-4.68) uIU/mL Urine RBC (0-5/HPF) Urine WBC (0-5/HPF) Ur Squamous Epith Cells (0-5/HPF) Urine Bacteria (None) Ur Culture Indicated? SARS-CoV-2 (PCR) (Negative) 03/06/22 03/06/22 Range/Units 05:45 17:35 WBC (4.5-11.0) X10^3/uL RBC (4.0-5.2) X10^6/uL Hgb (12.0-16.0) g/dL Hct (36-46) % MCV (80-100) fL MCH (26-34) PG MCHC (30-36) % RDW (11.6-14.8) % Plt Count (150-400) X10^3/uL Neut % (Auto) (50-75) % Lymph % (Auto) (25-40) % [place] % (Auto) (3-14) % Eos % (Auto) (2-4) % Baso % (Auto) (0-2) % Neut # (Auto) (5298-4074) /uL Lymph # (Auto) (4414-6079) /uL [place] # (Auto) (0-900) /uL Eos # (Auto) (0-450) /uL Baso # (Auto) (0-100) /uL PT (10.1-12.7) SECONDS INR (0.9-1.3) APTT (26-36) SECONDS Sodium 139 (137-145) mmol/L Potassium 3.9 (3.4-5.1) mmol/L Chloride 108 H (98-107) mmol/L Carbon Dioxide 22 (22-32) mmol/L BUN 4 L (7-17) mg/dL Creatinine 0.79 (0.52-1.04) mg/dL Estimated GFR > 60 (>60) mL/min BUN/Creatinine Ratio 5.1 L (6-22) Glucose 89 (80-110) mg/dL Calcium 8.7 (8.4-10.2) mg/dL Magnesium (1.6-2.3) mg/dL Total Bilirubin 1.9 H (0.2-1.3) mg/dL AST 133 H (14-36) IU/L ALT 228 H (<35) IU/L Alkaline Phosphatase 417 H (38-126) U/L Total Creatine Kinase (30-135) U/L CK-MB (CK-2) CK-MB (CK-2) Rel Index Troponin I (0.01-0.034) ng/mL Total Protein 6.4 (6.3-8.2) g/dL Albumin 3.5 (3.5-5.0) g/dL Globulin 2.9 (1.7-4.1) g/dL Albumin/Globulin Ratio 1.2 (1.0-2.8) Lipase (23-300) U/L TSH (0.47-4.68) uIU/mL Urine RBC (0-5/HPF) Urine WBC (0-5/HPF) Ur Squamous Epith Cells (0-5/HPF) Urine Bacteria (None) Ur Culture Indicated? SARS-CoV-2 (PCR) Negative (Negative) Urine Dip Bedside Urine Glucose Negative Bedside Urine Bilirubin - Negative Bedside Urine Ketone - Negative Urine Specific [place] 1.015 Bedside Urine Occult Blood + Bedside Urine pH 6.0 Bedside Urine Protein - Negative Bedside Urine Urobilinogen - Negative Bedside Urine Nitrite - Negative Bedside Urine Leukocytes - Negative Esterase MDM Narrative Medical decision making narrative: 03/04/22 Mank: Patient seen and evaluated independently by myself. Patient states she is been having symptoms since mid December with pain after she eats she will have several hours of abdominal pain, fever and chills and has had 102 F in the last week with nausea and sometimes vomiting. Patient states bananas and sometimes small amount of yogurt seem to be tolerated. She states that her only medication is levothyroxine. Patient states she is had a hysterectomy but no other surgeries. Patient states she is otherwise healthy. They have been adjusting her levothyroxine and she is somewhat convinced that this may be the cause of her choledocholithiasis today although we discussed these are likely separate issues. Patient does not appear to be septic but was covered with a dose of Zosyn she has reported fever in the last week. Not in here. Patient needs ERCP we do not have this available, contacting outside facilities to see about availability and transfer. Patient is aware of the critical bed shortage in the region and then this could potentially take several days. Patient currently waitlisted at [facility] and [facility], other facilities do not have any beds. [facility] regional hotline contacted earlier in the evening and recontacted this morning. Currently no bed availability. Patient did request something for sleep. Patient given one dose of ambien overnight for sleep which she tolerated well. Patient signed out to Dr. Black while awaiting potential placement. <Caesar Santiago DO - Last Filed: 03/06/22 19:55> Lab Data Labs: Lab Results 03/04/22 03/04/22 03/04/22 Range/Units 11:41 11:41 11:41 WBC 5.0 (4.5-11.0) X10^3/uL RBC 4.20 (4.0-5.2) X10^6/uL Hgb 12.3 (12.0-16.0) g/dL Hct 36.2 (36-46) % MCV 86.1 (80-100) fL MCH 29.2 (26-34) PG MCHC 33.9 (30-36) % RDW 14.0 (11.6-14.8) % Plt Count 294 (150-400) X10^3/uL Neut % (Auto) 71.7 (50-75) % Lymph % (Auto) 19.7 L (25-40) % [place] % (Auto) 7.1 (3-14) % Eos % (Auto) 0.7 L (2-4) % Baso % (Auto) 0.8 (0-2) % Neut # (Auto) 3600 (6211-1730) /uL Lymph # (Auto) 1000 L (5942-7373) /uL [place] # (Auto) 400 (0-900) /uL Eos # (Auto) 0 (0-450) /uL Baso # (Auto) 0 (0-100) /uL PT 12.8 H (10.1-12.7) SECONDS INR 1.1 (0.9-1.3) APTT 35 (26-36) SECONDS Sodium 138 (137-145) mmol/L Potassium 3.7 (3.4-5.1) mmol/L Chloride 102 (98-107) mmol/L Carbon Dioxide 23 (22-32) mmol/L BUN 9 (7-17) mg/dL Creatinine 0.72 (0.52-1.04) mg/dL Estimated GFR > 60 (>60) mL/min BUN/Creatinine Ratio 12.5 (6-22) Glucose 113 H (80-110) mg/dL Calcium 9.3 (8.4-10.2) mg/dL Magnesium 2.3 (1.6-2.3) mg/dL Total Bilirubin 1.2 (0.2-1.3) mg/dL AST 117 H (14-36) IU/L ALT 353 H (<35) IU/L Alkaline Phosphatase 479 H (38-126) U/L Total Creatine Kinase 21 L (30-135) U/L CK-MB (CK-2) TNP CK-MB (CK-2) Rel Index TNP Troponin I < 0.012 (0.01-0.034) ng/mL Total Protein 7.7 (6.3-8.2) g/dL Albumin 4.3 (3.5-5.0) g/dL Globulin 3.4 (1.7-4.1) g/dL Albumin/Globulin Ratio 1.3 (1.0-2.8) Lipase 51 (23-300) U/L TSH (0.47-4.68) uIU/mL Urine RBC (0-5/HPF) Urine WBC (0-5/HPF) Ur Squamous Epith Cells (0-5/HPF) Urine Bacteria (None) Ur Culture Indicated? SARS-CoV-2 (PCR) (Negative) 03/04/22 03/04/22 03/04/22 Range/Units 11:41 11:49 19:27 WBC (4.5-11.0) X10^3/uL RBC (4.0-5.2) X10^6/uL Hgb (12.0-16.0) g/dL Hct (36-46) % MCV (80-100) fL MCH (26-34) PG MCHC (30-36) % RDW (11.6-14.8) % Plt Count (150-400) X10^3/uL Neut % (Auto) (50-75) % Lymph % (Auto) (25-40) % [place] % (Auto) (3-14) % Eos % (Auto) (2-4) % Baso % (Auto) (0-2) % Neut # (Auto) (8637-0288) /uL Lymph # (Auto) (6827-7551) /uL [place] # (Auto) (0-900) /uL Eos # (Auto) (0-450) /uL Baso # (Auto) (0-100) /uL PT (10.1-12.7) SECONDS INR (0.9-1.3) APTT (26-36) SECONDS Sodium (137-145) mmol/L Potassium (3.4-5.1) mmol/L Chloride (98-107) mmol/L Carbon Dioxide (22-32) mmol/L BUN (7-17) mg/dL Creatinine (0.52-1.04) mg/dL Estimated GFR (>60) mL/min BUN/Creatinine Ratio (6-22) Glucose (80-110) mg/dL Calcium (8.4-10.2) mg/dL Magnesium (1.6-2.3) mg/dL Total Bilirubin (0.2-1.3) mg/dL AST (14-36) IU/L ALT (<35) IU/L Alkaline Phosphatase (38-126) U/L Total Creatine Kinase (30-135) U/L CK-MB (CK-2) CK-MB (CK-2) Rel Index Troponin I (0.01-0.034) ng/mL Total Protein (6.3-8.2) g/dL Albumin (3.5-5.0) g/dL Globulin (1.7-4.1) g/dL Albumin/Globulin Ratio (1.0-2.8) Lipase (23-300) U/L TSH 1.19 (0.47-4.68) uIU/mL Urine RBC 1-5/hpf (0-5/HPF) Urine WBC 0-1/hpf (0-5/HPF) Ur Squamous Epith Cells 1-5 /hpf (0-5/HPF) Urine Bacteria None seen (None) Ur Culture Indicated? Cult not indicated SARS-CoV-2 (PCR) Negative (Negative) 03/05/22 03/05/22 03/06/22 Range/Units 06:12 06:12 05:45 WBC 4.2 L 5.1 (4.5-11.0) X10^3/uL RBC 3.70 L 3.76 L (4.0-5.2) X10^6/uL Hgb 10.7 L 11.0 L (12.0-16.0) g/dL Hct 31.7 L 32.1 L (36-46) % MCV 85.8 85.3 (80-100) fL MCH 28.9 29.2 (26-34) PG MCHC 33.7 34.2 (30-36) % RDW 13.8 13.8 (11.6-14.8) % Plt Count 255 265 (150-400) X10^3/uL Neut % (Auto) 60.1 68.5 (50-75) % Lymph % (Auto) 27.9 19.4 L (25-40) % [place] % (Auto) 8.9 8.7 (3-14) % Eos % (Auto) 2.3 2.4 (2-4) % Baso % (Auto) 0.8 1.0 (0-2) % Neut # (Auto) 2500 3500 (7500-9230) /uL Lymph # (Auto) 1200 1000 L (5781-1605) /uL [place] # (Auto) 400 400 (0-900) /uL Eos # (Auto) 100 100 (0-450) /uL Baso # (Auto) 0 100 (0-100) /uL PT (10.1-12.7) SECONDS INR (0.9-1.3) APTT (26-36) SECONDS Sodium 137 (137-145) mmol/L Potassium 3.9 (3.4-5.1) mmol/L Chloride 107 (98-107) mmol/L Carbon Dioxide 24 (22-32) mmol/L BUN 6 L (7-17) mg/dL Creatinine 0.82 (0.52-1.04) mg/dL Estimated GFR > 60 (>60) mL/min BUN/Creatinine Ratio 7.3 (6-22) Glucose 86 (80-110) mg/dL Calcium 8.6 (8.4-10.2) mg/dL Magnesium (1.6-2.3) mg/dL Total Bilirubin 1.2 (0.2-1.3) mg/dL AST 67 H (14-36) IU/L ALT 205 H (<35) IU/L Alkaline Phosphatase 382 H (38-126) U/L Total Creatine Kinase (30-135) U/L CK-MB (CK-2) CK-MB (CK-2) Rel Index Troponin I (0.01-0.034) ng/mL Total Protein 6.3 (6.3-8.2) g/dL Albumin 3.4 L (3.5-5.0) g/dL Globulin 2.9 (1.7-4.1) g/dL Albumin/Globulin Ratio 1.2 (1.0-2.8) Lipase 54 (23-300) U/L TSH (0.47-4.68) uIU/mL Urine RBC (0-5/HPF) Urine WBC (0-5/HPF) Ur Squamous Epith Cells (0-5/HPF) Urine Bacteria (None) Ur Culture Indicated? SARS-CoV-2 (PCR) (Negative) 03/06/22 03/06/22 Range/Units 05:45 17:35 WBC (4.5-11.0) X10^3/uL RBC (4.0-5.2) X10^6/uL Hgb (12.0-16.0) g/dL Hct (36-46) % MCV (80-100) fL MCH (26-34) PG MCHC (30-36) % RDW (11.6-14.8) % Plt Count (150-400) X10^3/uL Neut % (Auto) (50-75) % Lymph % (Auto) (25-40) % [place] % (Auto) (3-14) % Eos % (Auto) (2-4) % Baso % (Auto) (0-2) % Neut # (Auto) (7344-9257) /uL Lymph # (Auto) (7922-8215) /uL [place] # (Auto) (0-900) /uL Eos # (Auto) (0-450) /uL Baso # (Auto) (0-100) /uL PT (10.1-12.7) SECONDS INR (0.9-1.3) APTT (26-36) SECONDS Sodium 139 (137-145) mmol/L Potassium 3.9 (3.4-5.1) mmol/L Chloride 108 H (98-107) mmol/L Carbon Dioxide 22 (22-32) mmol/L BUN 4 L (7-17) mg/dL Creatinine 0.79 (0.52-1.04) mg/dL Estimated GFR > 60 (>60) mL/min BUN/Creatinine Ratio 5.1 L (6-22) Glucose 89 (80-110) mg/dL Calcium 8.7 (8.4-10.2) mg/dL Magnesium (1.6-2.3) mg/dL Total Bilirubin 1.9 H (0.2-1.3) mg/dL AST 133 H (14-36) IU/L ALT 228 H (<35) IU/L Alkaline Phosphatase 417 H (38-126) U/L Total Creatine Kinase (30-135) U/L CK-MB (CK-2) CK-MB (CK-2) Rel Index Troponin I (0.01-0.034) ng/mL Total Protein 6.4 (6.3-8.2) g/dL Albumin 3.5 (3.5-5.0) g/dL Globulin 2.9 (1.7-4.1) g/dL Albumin/Globulin Ratio 1.2 (1.0-2.8) Lipase (23-300) U/L TSH (0.47-4.68) uIU/mL Urine RBC (0-5/HPF) Urine WBC (0-5/HPF) Ur Squamous Epith Cells (0-5/HPF) Urine Bacteria (None) Ur Culture Indicated? SARS-CoV-2 (PCR) Negative (Negative) Urine Dip Bedside Urine Glucose Negative Bedside Urine Bilirubin - Negative Bedside Urine Ketone - Negative Urine Specific [place] 1.015 Bedside Urine Occult Blood + Bedside Urine pH 6.0 Bedside Urine Protein - Negative Bedside Urine Urobilinogen - Negative Bedside Urine Nitrite - Negative Bedside Urine Leukocytes - Negative Esterase MDM Narrative Medical decision making narrative: 03/04/22 Mank: Patient seen and evaluated independently by myself. Patient states she is been having symptoms since mid December with pain after she eats she will have several hours of abdominal pain, fever and chills and has had 102 F in the last week with nausea and sometimes vomiting. Patient states bananas and sometimes small amount of yogurt seem to be tolerated. She states that her only medication is levothyroxine. Patient states she is had a hysterectomy but no other surgeries. Patient states she is otherwise healthy. They have been adjusting her levothyroxine and she is somewhat convinced that this may be the cause of her choledocholithiasis today although we discussed these are likely separate issues. Patient does not appear to be septic but was covered with a dose of Zosyn she has reported fever in the last week. Not in here. Patient needs ERCP we do not have this available, contacting outside facilities to see about availability and transfer. Patient is aware of the critical bed shortage in the region and then this could potentially take several days. Patient currently waitlisted at [facility] and [facility], other facilities do not have any beds. [facility] regional hotline contacted earlier in the evening and recontacted this morning. Currently no bed availability. Patient did request something for sleep. Patient given one dose of ambien overnight for sleep which she tolerated well. Patient signed out to Dr. Black while awaiting potential placement. 03/04/22 Wayne Patient seen evaluated by myself. She appears well. MRCP this morning confirms at least to common bile duct stones. Liver enzymes is are decreasing she continues to have a negative bilirubin no fever minimal pain. I discussed case with Dr. BRICENO, [facility]. At this time he recommends pursuing transfer for ERCP. He has complications risk is too high even though this has been going on for number of weeks. Has she is currently a high priority for [place]. She remains on list at [facility], [facility], [facility] and . 12:22 KAVITA Palmer at [facility] updated patient's symptoms test results at this time agrees it is best if patient is inpatient for an ERCP. Patient is placed at the high list Signed out to Dr. Almanzar, [[id number]] ([place]) Patient received in sign out from [Jenelle]. I have reviewed the clinical course and performed an independent history and physical exam. Patient feeling much better, not having any pain, nauseated but tolerating liquids. I have spoken with GI at [facility] (Soni) and we have revie wed the patient's clinical course, MRCP, labs and the trend of her presentation over the course of the past few days. He states he can take her for an outpatient ERCP on Tuesday and recommend she be discharged and transitioned to Augmentin b.i.d., clear liquid diet, repeat COVID test today and will take her contact info and reach out to her on Tuesday. Patient with known choledocholithiasis remained stable and shows no signs of sepsis. Pain is well controlled and she is tolerating liquids. Over the past few days she has stabilized and after discussion with local GI she is appropriate for discharge, he has room to do an ERCP as an outpatient on Tuesday. Patient given extensive return precautions and questions answered to her apparent satisfaction <Caesar Santiago DO - Last Filed: 03/06/22 19:55> Critical Care Time Critical Care Time: Yes Total Critical Care Time: 60 Attestation: The high probability of a clinically significant, sudden or life threatening deterioration of the [GI] system(s) required my full and direct attention, inte rvention and personal management. The aggregate critical care time was [60] minutes. This time is in addition to time spent performing reported procedures but includes the following: [x] Data Review and interpretation [x] Patient assessment and monitoring of vital signs [x] Documentation [x] Medication orders and management Discharge Plan Departure Patient Disposition: Home Clinical Impression: Choledocholithiasis Instructions: DI for Gallstones Activity Restrictions/Additional Instructions: *You have been diagnosed with [choledocholithiasis (gallstones within your common bile duct)] * As we discussed your history and physical exam as well as labs and imaging have improved and after discussion with Dr. Shafer (GI at [facility]) you are appropriate for discharge and he can do the necessary procedure which is called an ERCP as an outpatient on Tuesday *What to do: *Please continue to take your regular medications as directed. [x ] New medication prescriptions sent to your pharmacy: [ [facility] [place]] * please expect a call from Dr. Shafer's office on Tuesday. If you do not hear from them by lunch time please call them at [phone] *Please consider a clear liquid diet for the next 24-48 hours and then slowly advance to regular as tolerated. Also, try to avoid alcohol, nicotine, caffeine, spicy, acidic or fatty foods as this may worsen your symptoms *Return to Emergency Department if you should have any new, worsening or concerning symptoms Prescriptions: New amoxicillin-pot clavulanate 875-125 mg tablet 1 tab PO BID Qty: 20 0RF No Action levothyroxine 125 mcg tablet 125 mcg PO DAILY Qty: 90 1RF Referrals: Hosea Gary MD [Primary Care Provider] - Visit Report Forms: Patient Portal/API
--- NOTE | 2022-03-04 16:19 | DI.US.S_ITS ---
PROCEDURE: US ABDOMEN LIMITED INDICATIONS: ruq TECHNIQUE: Real-time focused scanning was performed of the abdomen, with image documentation. COMPARISON: None. FINDINGS: Increased hepatic echogenicity. The liver measures 16 centimeters. Dilated intrahepatic ducts. Cholelithiasis. Distended gallbladder. CBD measures 17 millimeters. CHD measures 7 millimeters. Choledocholithiasis. Pancreas is not well seen. Overall evaluation is limited by large body habitus. IMPRESSION: Cholelithiasis and choledocholithiasis. Biliary tree dilation If there is further clinical concern for cholecystitis, consider HIDA scan. Suspected hepatic steatosis. Dictated by: Felipe Tinoco M.D. on 03/04/2022 at 17:35 Approved by: Felipe Tinoco M.D. on 03/04/2022 at 17:37
[2022-03-04] MEDS: SODIUM CHLORIDE 0.9% 1,000 ML 1000 ML IV (16:41)
--- NOTE | 2022-03-04 17:23 | DI.CT.S_ITS ---
PROCEDURE: CT ABDOMEN PELVIS W CON INDICATIONS: possible stone cbd elevated liver enzymes TECHNIQUE: After the administration of intravenous contrast, axial sections acquired from the lung bases to the pubic symphysis. Coronal and sagittal reformats were performed. For radiation dose reduction, the following was used: automated exposure control, adjustment of mA and/or kV according to patient size. COMPARISON: None. FINDINGS: Image quality: Excellent. Lung bases: Unremarkable. Heart: No significant findings. ABDOMEN: Liver: Subcentimeter lesions are too small to characterize. Gallbladder: Cholelithiasis. Hydropic. No significant pericholecystic stranding. Biliary ducts: Choledocholithiasis. Marked dilation. Pancreas: Unremarkable. Spleen: Unremarkable. Adrenal Glands: Unremarkable. Kidneys and Ureters: Right inferior pole renal cyst. Stomach and Bowel: No bowel obstruction. Small duodenal diverticulum. Colonic diverticula. Normal appendix. Peritoneum: No abnormal intraperitoneal fluid. No free air. Ventral Wall: Small umbilical fat containing hernia. Abdominal Nodes: No retroperitoneal or mesenteric adenopathy by size criteria. Vessels: Mild atherosclerotic calcifications. PELVIS: Pelvic Organs: Hysterectomy. There is some soft tissue thickening at the vaginal cuff Bladder: Unremarkable. Pelvic Nodes: No enlarged lymph nodes. Miscellaneous: No hernias are seen. Bones: No acute or suspicious osseous abnormality. Right sacral sclerotic lesion is probably a bone island, assuming patient does not have a primary malignancy history. IMPRESSION: Cholelithiasis and choledocholithiasis with marked biliary tree dilation. The gallbladder is hydropic. However, there are no other secondary signs of cholecystitis on CT, although this is not the optimal modality. Other incidental findings above. Soft tissue thickening at the vaginal cuff might be normal postsurgical appearance. Correlate with any history of discharge or bleeding. Dictated by: Felipe Tinoco M.D. on 03/04/2022 at 17:55 Approved by: Felipe Tinoco M.D. on 03/04/2022 at 18:01
[2022-03-04] MEDS: PIPERACILLIN/TAZO 4.5 GM in SODIUM CHLORIDE 0.9% 100 ML IV (19:12)
[2022-03-04] MEDS: KETOROLAC 30 MG/ML VIAL 15 MG IV (19:24)
[2022-03-04 19:48] LABS: COVID19 -Nasal RAPID Negative (Negative)
[2022-03-05] VITALS (7 sets, daily range): BP systolic 116–137; BP diastolic 54–77; PULSE 57–74; RESP 16–18; TEMP 36.8; O2SAT 94–98
[2022-03-05] MEDS: ZOLPIDEM 5 MG TABLET PO ×2 (01:43→21:50)
[2022-03-05] MEDS: PIPERACILLIN/TAZO 4.5 GM in SODIUM CHLORIDE 0.9% 100 ML IV ×3 (02:34→20:21)
[2022-03-05 06:18] LABS: Add Manual Diff / Slide Review NO; Basophils Absolute Auto 0 /uL (0-100); Basophils Percent Auto 0.8 % (0-2); Eosinophils Absolute Auto 100 /uL (0-450); Eosinophils Percent Auto 2.3 % (2-4); Hematocrit 31.7 % (36-46); Hemoglobin 10.7 g/dL (12.0-16.0); Lymphocytes Absolute Auto 1200 /uL (1100-4500); Lymphocytes Percent Auto 27.9 % (25-40); Mean Corpuscular HGB Conc 33.7 % (30-36); Mean Corpuscular Hemoglobin 28.9 PG (26-34); Mean Corpuscular Volume 85.8 fL (80-100); Monocytes Absolute Auto 400 /uL (0-900); Monocytes Percent Auto 8.9 % (3-14); Neutrophils Absolute Auto 2500 /uL (1500-7000); Neutrophils Percent Auto 60.1 % (50-75); Platelet Count 255 X10^3/uL (150-400); Red Cell Distribution Width 13.8 % (11.6-14.8); White Blood Cell Count 4.2 X10^3/uL (4.5-11.0)
[2022-03-05 06:29] LABS: Alanine Aminotransferase 205 IU/L (<35); Albumin 3.4 g/dL (3.5-5.0); Albumin Globulin Ratio 1.2 (1.0-2.8); Alkaline Phosphatase 382 U/L (38-126); Aspartate Aminotransferase 67 IU/L (14-36); BUN Creatinine Ratio 7.3 (6-22); Bilirubin Total 1.2 mg/dL (0.2-1.3); Blood Urea Nitrogen 6 mg/dL (7-17); Calcium 8.6 mg/dL (8.4-10.2); Carbon Dioxide 24 mmol/L (22-32); Chloride 107 mmol/L (98-107); Estimated Glomerular Filt Rate > 60 mL/min (>60); Globulin 2.9 g/dL (1.7-4.1); Glucose 86 mg/dL (80-110); HEMOLYSIS < 15 (0-50); Lipase 54 U/L (23-300); Potassium 3.9 mmol/L (3.4-5.1); Sodium 137 mmol/L (137-145); Total Protein 6.3 g/dL (6.3-8.2)
--- NOTE | 2022-03-05 07:32 | DI.MRI.S_ITS ---
PROCEDURE: MR ABDOMEN WO CON INDICATIONS: dilated cbd TECHNIQUE: Coronal HASTE through the abdomen, axial 2-D FLASH in- and [id number], and breath-hold T2 FSE with fat saturation through the biliary system and pancreas. Oblique coronal and axial thin-slice HASTE, radial thick-slab HASTE centered on the extrahepatic bile ducts. Intravenous secretin: Not requested. COMPARISON: [facility], CT, CT ABDOMEN PELVIS W CON, 03/04/2022, 17:32. FINDINGS: Image quality: Excellent. Pancreas and biliary system: There is [id number] intrahepatic biliary ductal dilatation more prominent involving left hepatic lobe and measures up to 9 millimeter in diameter. significant dilatation of common hepatic duct and common bile duct measures up to 2 cm in diameter proximally and 1.3 cm in diameter distally which was also seen on previous CT and ultrasound studies. 2 filling defects are noted in distal common bile duct measures 1 and 0.4 cm in size with abrupt narrowing at most distal common bile duct. Pancreas is normal in morphology, without adjacent soft tissue edema. Pancreatic duct is normal in caliber, without developmental anomalies. Gallbladder is distended without gallbladder wall thickening or pericholecystic fluid. Small filling defect in dependent portion of gallbladder lumen near fundus is seen suggestive of gallstone. Other solid organs: Liver is normal in size. Spleen is normal in size. No adrenal nodules. Both kidneys are normal in size, without hydronephrosis. Nodes and vessels: No retroperitoneal or mesenteric adenopathy by size criteria. Aorta and inferior vena cava are normal in size. Bowel and peritoneum: Unenhanced bowel loops are normal in caliber. No free fluid. Lung bases: No basal pleural effusions. Heart size is normal. Bones and soft tissues: No ventral hernias. Bone marrow is of normal overall signal. IMPRESSION: 1. [id number] dilatation of intrahepatic biliary ducts and marked dilatation of common bile duct with at least 2 stones seen within distal common bile duct suggestive of distal common bile duct obstruction. 2. Cholelithiasis without gallbladder wall thickening or pericholecystic fluid to suggest acute cholecystitis. 3. Normal appearing pancreas and pancreatic duct. No discrete hepatic lesion is seen. Spleen is within normal limits. 4. No peritoneal free fluid. Dictated by: Ollie Calderon M.D. on 03/05/2022 at 9:21 Approved by: Ollie Calderon M.D. on 03/05/2022 at 9:30
[2022-03-05] MEDS: ENOXAPARIN 40 MG/0.4 ML SYRINGE SUBCUT (11:14)
[2022-03-06] VITALS (7 sets, daily range): BP systolic 127–154; BP diastolic 63–80; PULSE 59–68; RESP 18–20; TEMP 36.6–36.7; O2SAT 95–99
[2022-03-06] MEDS: PIPERACILLIN/TAZO 4.5 GM in SODIUM CHLORIDE 0.9% 100 ML IV ×2 (04:29→11:42)
[2022-03-06 05:58] LABS: Add Manual Diff / Slide Review NO; Basophils Absolute Auto 100 /uL (0-100); Eosinophils Absolute Auto 100 /uL (0-450); Eosinophils Percent Auto 2.4 % (2-4); Hematocrit 32.1 % (36-46); Lymphocytes Absolute Auto 1000 /uL (1100-4500); Lymphocytes Percent Auto 19.4 % (25-40); Mean Corpuscular HGB Conc 34.2 % (30-36); Mean Corpuscular Hemoglobin 29.2 PG (26-34); Mean Corpuscular Volume 85.3 fL (80-100); Monocytes Absolute Auto 400 /uL (0-900); Monocytes Percent Auto 8.7 % (3-14); Neutrophils Absolute Auto 3500 /uL (1500-7000); Neutrophils Percent Auto 68.5 % (50-75); Platelet Count 265 X10^3/uL (150-400); Red Blood Cell Count 3.76 X10^6/uL (4.0-5.2); Red Cell Distribution Width 13.8 % (11.6-14.8); White Blood Cell Count 5.1 X10^3/uL (4.5-11.0)
[2022-03-06 06:09] LABS: Alanine Aminotransferase 228 IU/L (<35); Albumin 3.5 g/dL (3.5-5.0); Albumin Globulin Ratio 1.2 (1.0-2.8); Alkaline Phosphatase 417 U/L (38-126); Aspartate Aminotransferase 133 IU/L (14-36); BUN Creatinine Ratio 5.1 (6-22); Bilirubin Total 1.9 mg/dL (0.2-1.3); Blood Urea Nitrogen 4 mg/dL (7-17); Calcium 8.7 mg/dL (8.4-10.2); Carbon Dioxide 22 mmol/L (22-32); Chloride 108 mmol/L (98-107); Estimated Glomerular Filt Rate > 60 mL/min (>60); Globulin 2.9 g/dL (1.7-4.1); Glucose 89 mg/dL (80-110); HEMOLYSIS < 15 (0-50); Potassium 3.9 mmol/L (3.4-5.1); Sodium 139 mmol/L (137-145); Total Protein 6.4 g/dL (6.3-8.2)
[2022-03-06] MEDS: ENOXAPARIN 40 MG/0.4 ML SYRINGE SUBCUT (09:42)
[2022-03-06] MEDS: AMOXICILLIN/CLAV 875/125 MG 1 TAB PO (17:40)
[2022-03-06 18:40] LABS: COVID19 -Nasal RAPID Negative (Negative)
== END 2022-03-06 18:27 | disposition home or self-care (01) ==
PROVIDERS: Emergency Medicine; Emergency Provider Emergency Medicine; PCP Student in an Organized Health Care Education/Training Program
DX: K80.50 Calculus of bile duct without cholangitis or cholecystitis without obstruction (principal); R07.9 Chest pain, unspecified; R79.89 Other specified abnormal findings of blood chemistry; Z20.822 Contact with and (suspected) exposure to COVID-19
CPT/HCPCS: 36415; 71045; 74177; 74181; 76705; 80053; 81003; 81015; 82550; 83690; 83735; 84443; 84484; 85025; 85610; 85730; 87635; 93005; 93010; 96361; 96365; 96366; 96372; 96375; 99284; 99285; 99291; C9803; J1650; J1885; J2543; Q9967

== ENCOUNTER → 2022-04-20 13:45 | Outpatient (CLI) | payer OTHER, SELFPAY ==
[2022-04-20 14:50] LABS: Add Manual Diff / Slide Review NO; Basophils Absolute Auto 0 /uL (0-100); Basophils Percent Auto 0.4 % (0-2); Eosinophils Absolute Auto 200 /uL (0-450); Eosinophils Percent Auto 2.9 % (2-4); Hematocrit 38.6 % (36-46); Hemoglobin 13.1 g/dL (12.0-16.0); Lymphocytes Absolute Auto 1900 /uL (1100-4500); Lymphocytes Percent Auto 25.4 % (25-40); Mean Corpuscular HGB Conc 33.9 % (30-36); Mean Corpuscular Hemoglobin 29.9 PG (26-34); Mean Corpuscular Volume 88.4 fL (80-100); Monocytes Absolute Auto 500 /uL (0-900); Monocytes Percent Auto 6.1 % (3-14); Neutrophils Absolute Auto 4900 /uL (1500-7000); Neutrophils Percent Auto 65.2 % (50-75); Platelet Count 246 X10^3/uL (150-400); Red Blood Cell Count 4.37 X10^6/uL (4.0-5.2); White Blood Cell Count 7.5 X10^3/uL (4.5-11.0)
[2022-04-20 15:19] LABS: Alanine Aminotransferase 32 IU/L (<35); Albumin 4.3 g/dL (3.5-5.0); Albumin Globulin Ratio 1.5 (1.0-2.8); Alkaline Phosphatase 75 U/L (38-126); Aspartate Aminotransferase 33 IU/L (14-36); BUN Creatinine Ratio 18.9 (6-22); Bilirubin Total 0.6 mg/dL (0.2-1.3); Blood Urea Nitrogen 14 mg/dL (7-17); Calcium 9.6 mg/dL (8.4-10.2); Carbon Dioxide 27 mmol/L (22-32); Chloride 103 mmol/L (98-107); Estimated Glomerular Filt Rate > 60 mL/min (>60); Gamma Glutamyl Transpeptidase 58 U/L (12-43); Globulin 2.8 g/dL (1.7-4.1); Glucose 84 mg/dL (80-110); HEMOLYSIS < 15 (0-50); Potassium 4.8 mmol/L (3.4-5.1); Sodium 138 mmol/L (137-145); Total Protein 7.1 g/dL (6.3-8.2)
[2022-04-20 15:35] LABS: Free T4, Direct Thyroxine 0.99 ng/dL (0.78-2.19)
[2022-04-20 15:49] LABS: Thyroid Stimulating Hormone 10.6 uIU/mL (0.47-4.68)
== END ==
PROVIDERS: PCP Student in an Organized Health Care Education/Training Program; Referring Provider Student in an Organized Health Care Education/Training Program; Visit Provider Student in an Organized Health Care Education/Training Program
DX: E03.9 Hypothyroidism, unspecified (principal); K80.50 Calculus of bile duct without cholangitis or cholecystitis without obstruction
CPT/HCPCS: 36415; 80053; 82977; 84439; 84443; 84481; 85025

== ENCOUNTER → 2022-07-29 15:57 | Outpatient (CLI) | payer OTHER, SELFPAY ==
[2022-07-29 18:55] LABS: TSH w/ Reflex to FT4 0.05 uIU/mL (0.47-4.68)
[2022-07-29 19:27] LABS: Free T4, Direct Thyroxine 1.93 ng/dL (0.78-2.19)
== END ==
PROVIDERS: PCP Student in an Organized Health Care Education/Training Program; Referring Provider Student in an Organized Health Care Education/Training Program; Visit Provider Student in an Organized Health Care Education/Training Program
DX: E03.9 Hypothyroidism, unspecified (principal)
CPT/HCPCS: 36415; 84439; 84443

== ENCOUNTER → 2022-09-29 14:49 | Outpatient (CLI) | payer OTHER, SELFPAY ==
[2022-09-29 16:15] LABS: Free T3, Triiodothyronine Free 3.65 pg/mL (2.77-5.27); Free T4, Direct Thyroxine 2.07 ng/dL (0.78-2.19)
[2022-09-29 16:28] LABS: Thyroid Stimulating Hormone 0.019 uIU/mL (0.47-4.68)
== END ==
PROVIDERS: PCP Student in an Organized Health Care Education/Training Program; Referring Provider Student in an Organized Health Care Education/Training Program; Visit Provider Student in an Organized Health Care Education/Training Program
DX: E03.9 Hypothyroidism, unspecified (principal)
CPT/HCPCS: 36415; 84439; 84443; 84481

== ENCOUNTER → 2022-11-29 06:35 | Outpatient (CLI) | payer OTHER, SELFPAY ==
--- NOTE | 2022-11-29 06:36 | DI.US.S_ITS ---
PROCEDURE: US THYROID INDICATIONS: Reassess Thyroid Nodule. TECHNIQUE: Real-time scanning was performed of the thyroid gland, with image documentation. COMPARISON: [facility], US, US THYROID, 11/18/2020, 11:44. FINDINGS: Right: The right thyroid lobe measures 4.2 x 1.7 x 1.4 cm. Left: The left thyroid lobe measures 3.6 x 1.2 x 1.2 cm. The thyroid has a diffusely heterogeneous, multinodular appearance with increased vascularity throughout. Isthmus: 3 mm thick. No discrete thyroid nodules are visualized on the current study. Specifically, the inferior left thyroid nodule visualized on the comparison ultrasound dated November 18, 2020 is not definitely visualized on the current study. IMPRESSION: Diffusely heterogeneous, nodular appearing thyroid without discrete nodules visualized. ACR TI-RADS definitions and recommendations: TI-RADS 1 (benign): 0 points. FNA not needed. TI-RADS 2 (not suspicious): 2 points. FNA not needed. TI-RADS 3 (mildly suspicious): 3 points. * FNA if 2.5 cm or larger, follow up if 1.5 cm or larger (at 1, 3, and 5 years). TI-RADS 4 (moderately suspicious): 4-6 points. * FNA if 1.5 cm or larger, follow up if 1 cm or larger (at 1, 2, 3, and 5 years). TI-RADS 5 (highly suspicious): 7 points or more. * FNA if 1 cm or larger, follow up if 0.5 cm or larger (every year for 5 years). Dictated by: Li Salter M.D. on 11/29/2022 at 10:25 Approved by: Li Salter M.D. on 11/29/2022 at 10:30
--- NOTE | 2022-11-29 06:36 | DI.US.S_ITS ---
PROCEDURE: US ABDOMEN LIMITED INDICATIONS: Gallstones TECHNIQUE: Real-time scanning was performed of the abdominal and retroperitoneal organs, with image documentation. COMPARISON: [facility], MR, MR ABDOMEN WO CON, 03/05/2022, 8:40. [facility], US, US ABDOMEN LIMITED, 03/04/2022, 17:08. FINDINGS: Liver: The liver measures 16.1 cm in length and demonstrates increased echogenicity. Gallbladder: The gallbladder wall measures 3 mm in diameter. An echogenic focus is noted within the cystic duct which measures 6 mm in diameter. Biliary ducts: Intrahepatic bile ducts are non-dilated. Extrahepatic bile duct caliber measures 8 mm. Normal is 6-7 mm or less in diameter, or 10 mm or less post-cholecystectomy. Pancreas: The pancreas is echogenic. IMPRESSION: 1. Limited study due to body habitus. 2. Questionable gallstone within the cystic duct measuring 6 mm in diameter. No gallbladder wall thickening or intrahepatic biliary ductal dilatation to suggest choledocholithiasis or acute cholecystitis. 3. Increased hepatic echogenicity noted likely related to fatty infiltration of the liver but other sources of hepatocellular disease cannot be excluded. Dictated by: Li Salter M.D. on 11/29/2022 at 9:56 Approved by: Li Salter M.D. on 11/29/2022 at 9:58
== END ==
PROVIDERS: PCP Student in an Organized Health Care Education/Training Program; Referring Provider Student in an Organized Health Care Education/Training Program; Visit Provider Student in an Organized Health Care Education/Training Program
DX: E04.1 Nontoxic single thyroid nodule (principal); K80.50 Calculus of bile duct without cholangitis or cholecystitis without obstruction
CPT/HCPCS: 76536; 76705

== ENCOUNTER → 2023-05-11 08:38 | Outpatient (CLI) | payer OTHER, SELFPAY ==
[2023-05-11 10:37] LABS: Add Manual Diff / Slide Review NO; Basophils Absolute Auto 0 /uL (0-100); Basophils Percent Auto 0.4 % (0-2); Eosinophils Absolute Auto 600 /uL (0-450); Eosinophils Percent Auto 9.1 % (2-4); Hematocrit 37.9 % (36-46); Hemoglobin 12.7 g/dL (12.0-16.0); Lymphocytes Absolute Auto 1700 /uL (1100-4500); Lymphocytes Percent Auto 27.4 % (25-40); Mean Corpuscular HGB Conc 33.5 % (30-36); Mean Corpuscular Hemoglobin 28.3 PG (26-34); Mean Corpuscular Volume 84.6 fL (80-100); Monocytes Absolute Auto 500 /uL (0-900); Neutrophils Absolute Auto 3300 /uL (1500-7000); Neutrophils Percent Auto 55.1 % (50-75); Platelet Count 242 X10^3/uL (150-400); Red Blood Cell Count 4.48 X10^6/uL (4.0-5.2); Red Cell Distribution Width 13.5 % (11.6-14.8); White Blood Cell Count 6.1 X10^3/uL (4.5-11.0)
[2023-05-11 10:40] LABS: HEMOLYSIS < 15 (0-50); Iron 75 ug/dL (37-170)
[2023-05-11 10:42] LABS: Alanine Aminotransferase 18 IU/L (<35); Albumin 4.2 g/dL (3.5-5.0); Albumin Globulin Ratio 1.6 (1.0-2.8); Alkaline Phosphatase 74 U/L (38-126); Aspartate Aminotransferase 21 IU/L (14-36); BUN Creatinine Ratio 26.6 (6-22); Bilirubin Total 0.6 mg/dL (0.2-1.3); Blood Urea Nitrogen 21 mg/dL (7-17); Calcium 9.6 mg/dL (8.4-10.2); Carbon Dioxide 25 mmol/L (22-32); Chloride 105 mmol/L (98-107); Cholesterol 225 mg/dL (140-199); Estimated Glomerular Filt Rate > 60 mL/min (>60); Globulin 2.7 g/dL (1.7-4.1); Glucose 95 mg/dL (80-110); HDL Cholesterol 57 mg/dL (40-60); HEMOLYSIS < 15 (0-50); LDL Cholesterol Calculated 147 mg/dL (<100); Potassium 4.7 mmol/L (3.4-5.1); Sodium 138 mmol/L (137-145); Total Protein 6.9 g/dL (6.3-8.2); Triglycerides 104 mg/dL (35-150)
[2023-05-11 10:54] LABS: Percent Iron Saturation 29 % (15-50); Total Iron Binding Capacity 261 ug/dL (265-497); Transferrin 212 mg/dL (206-381)
[2023-05-11 10:59] LABS: Free T3, Triiodothyronine Free 4.09 pg/mL (2.77-5.27); Free T4, Direct Thyroxine 2.13 ng/dL (0.78-2.19)
[2023-05-11 11:20] LABS: Thyroid Stimulating Hormone < 0.015 uIU/mL (0.47-4.68)
[2023-05-11 11:29] LABS: Vitamin B12 248 pg/mL (239-931)
== END ==
PROVIDERS: PCP Family Medicine; Referring Provider Family Medicine; Visit Provider Family Medicine
DX: Z00.00 Encounter for general adult medical examination without abnormal findings (principal); E03.9 Hypothyroidism, unspecified; E78.5 Hyperlipidemia, unspecified
CPT/HCPCS: 36415; 80053; 80061; 82607; 83540; 83550; 84439; 84443; 84481; 85025